=== PATIENT | male | born 1985 | race Caucasian/White ===

== ENCOUNTER 2021-07-05 18:54 | Outpatient (REF) | payer OTHER, SELFPAY ==
[2021-07-06 15:19] LABS: COVID-19 RT-PCR UVMMC Result Positive (Negative)
== END 2021-07-05 18:55 | disposition home or self-care (01) ==
LOC: LBN 18:54
PROVIDERS: Visit Provider Nurse Practitioner Family
DX: Z20.822 Contact with and (suspected) exposure to COVID-19 (principal); J06.9 Acute upper respiratory infection, unspecified
CPT/HCPCS: U0003

== ENCOUNTER 2021-11-07 13:38 | Outpatient (REF) | payer OTHER, SELFPAY | END 2021-11-07 13:39 | disposition home or self-care (01) | LOC: NCHCN 13:38 | PROVIDERS: Visit Provider Physician Assistant | DX: N46.9 Male infertility, unspecified (principal) | CPT/HCPCS: 89240; 89310 ==

== ENCOUNTER 2021-11-07 14:22 | Outpatient (REF) | payer OTHER, SELFPAY ==
[2021-11-09 16:00] LABS: Appearance Normal; Container Type 50 mL Conical; Midpiece Defect 4.5 %; Motile/Ejaculate 117.6 x10(6) (>=9.0); Motile/mL 58.8 x10(6) (>=6.0); Motility 56 % (>=40); Study Type Semen; Tail Defect 40.5 %
== END 2021-11-07 14:23 | disposition home or self-care (01) ==
LOC: NCHCN 14:22
PROVIDERS: PCP Physician Assistant; Visit Provider Physician Assistant
DX: N46.9 Male infertility, unspecified (principal)
CPT/HCPCS: 89240; 89310

== ENCOUNTER 2021-11-16 08:50 | Outpatient (REF) | payer OTHER, SELFPAY ==
[2021-11-16 15:27] LABS: Anion Gap 8.9 mmol/L (3-11); BUN 16 mg/dL (7-18); CO2 28.1 mmol/L (21.0-32.0); CREATININE 1.1 mg/dL (0.70-1.30); Calcium 8.9 mg/dL (8.5-10.1); Calculated LDL 176 mg/dL (<100); Chloride 104 mmol/L (98-107); Cholesterol 261 mg/dL (<200); Glucose 95 mg/dL (74-106); HDL Cholesterol 47 mg/dL (40-60); Potassium 4.2 mmol/L (3.5-5.1); Sodium 141 mmol/L (136-145); Triglyceride 192 mg/dL (<150)
== END 2021-11-16 08:51 | disposition home or self-care (01) ==
LOC: NCHCN 08:50
PROVIDERS: PCP Physician Assistant; Visit Provider Physician Assistant
DX: Z00.00 Encounter for general adult medical examination without abnormal findings (principal)
CPT/HCPCS: 80048; 80061

== ENCOUNTER 2022-07-26 19:02 | Outpatient (REF) | payer OTHER, SELFPAY ==
[2022-07-28 10:37] LABS: COVID-19 RT-PCR UVMMC Result Negative (Negative)
== END 2022-07-26 19:03 | disposition home or self-care (01) ==
LOC: LBN 19:02
PROVIDERS: PCP Physician Assistant; Visit Provider Physician Assistant Medical
DX: R05.9 Cough, unspecified (principal); Z20.822 Contact with and (suspected) exposure to COVID-19
CPT/HCPCS: U0003

== ENCOUNTER 2022-11-27 13:32 | Outpatient (REF) | payer OTHER, SELFPAY ==
[2022-11-28 15:35] LABS: Appearance Normal; Container Type 50 mL Conical; Grade 3.5 (>=2.5); Motile/mL 116.5 x10(6) (>=6.0); Motility 59 % (>=40); Sperm/mL 197.4 x10(6) (>=15.0); Study Type Semen
[2022-11-29 15:58] LABS: Acrosom Defect 13.5 %; Head Shape Abnormal 24.5 %; WBC/mL 5.92 x10(6) (<1.00)
== END 2022-11-27 13:33 | disposition home or self-care (01) ==
LOC: LBN 13:32
PROVIDERS: PCP Physician Assistant; Visit Provider Obstetrics & Gynecology Reproductive Endocrinology
DX: Z11.3 Encounter for screening for infections with a predominantly sexual mode of transmission (principal); Z31.41 Encounter for fertility testing
CPT/HCPCS: 89240; 89310

== ENCOUNTER 2022-12-12 03:05 | Outpatient (CLI) | payer OTHER, SELFPAY ==
[2022-12-13 09:51] LABS: Hepatitis B Surface Ag Negative (Negative)
[2022-12-13 10:36] LABS: HIV-1/2 Ag & Ab Screen Negative (Negative)
[2022-12-13 11:04] LABS: Syphilis Serology (RPR) Negative (Negative)
[2022-12-13 11:34] LABS: Hepatitis C Ab w Rflx HCV PCR Negative (Negative)
== END 2022-12-12 03:06 | disposition home or self-care (01) ==
PROVIDERS: PCP Physician Assistant; Visit Provider Obstetrics & Gynecology Reproductive Endocrinology
DX: Z11.4 Encounter for screening for human immunodeficiency virus [HIV] (principal); Z11.59 Encounter for screening for other viral diseases; Z11.3 Encounter for screening for infections with a predominantly sexual mode of transmission
CPT/HCPCS: 36415; 86803; 87340; 87389; 86592